=== PATIENT | male | born 1960 | race American Indian/Alaskan Native ===

== ENCOUNTER 2017-04-28 08:04 | Emergency (ER) | payer MEDICARE ==
[2017-04-28 08:59] VITALS: BP 123/77
[2017-04-28] MEDS ORDERED: CLEOCIN IM ONE (10:26)
--- NOTE | 2017-04-28 10:30 | Emergency Department Report ---
HPI - General Chief Complaint: Extremity Injury, Upper Time Seen by Provider: 04/28/17 10:04 - HPI HPI: Patient is a 56-year-old male who presents with her injured left finger pinky finger. Patient states about 2-3 years ago he sustained a burn to his left pinky finger. Patient states finger healed appropriately. Patient states about 10 days ago he was helping his friend move when the furniture. His RAD injured pinky finger and caused a skin to fall off. Patient states he has no sensation in the finger because he had a tendon injury about 10 years ago on that arm ED Past Medical Hx - Past Medical History Previous Medical History?: No Hx Psychiatric Treatment: Yes (bipolar) - Surgical History Past Surgical History?: No - Medications Home Medications: Home Medications Medication Instructions Recorded Confirmed Last Taken Type Cephalexin [Keflex] 500 mg PO Q12HR #10 cap 04/28/17 Unknown Rx Neomycin/Bacitracin/Polymyxinb 1 applic TP TID #1 tube 04/28/17 Unknown Rx [Triple Antibiotic Ointment] ED Review of Systems ROS: Stated complaint: LEFT HAND FINGER INJURY Other details as noted in HPI Constitutional: denies: chills, fever Eyes: denies: eye pain, eye discharge, vision change ENT: denies: ear pain, throat pain Respiratory: denies: cough, shortness of breath, wheezing Cardiovascular: denies: chest pain, palpitations Endocrine: no symptoms reported Gastrointestinal: denies: abdominal pain, nausea, diarrhea Genitourinary: denies: urgency, dysuria, frequency, hematuria Musculoskeletal: denies: back pain, joint swelling, arthralgia Skin: denies: rash, lesions Neurological: denies: headache, weakness, paresthesias Psychiatric: denies: anxiety, depression Hematological/Lymphatic: denies: easy bleeding, easy bruising Physical Exam - Physical Exam Vital Signs: Vital Signs 04/28/17 08:53 Temperature 97.5 F L Pulse Rate 74 Respiratory 16 Rate Blood Pressure 123/77 O2 Sat by Pulse 98 Oximetry Physical Exam: GENERAL: Alert and oriented x3, no apparent distress, Normal Gait, atraumatic. LUNGS: Symetrical with respiration, No wheezing, no rales or crackles, CTAB. HEART: S1, S2 present, regular rate and rhythm without murmur, no rubs, no gallops. Non tender to palpation EXTREMITIES/MUSCULOSKELETAL: No cyanosis, clubbing, rash, lesions or edema. Full ROM bilaterally. UE/LE Pulses 2+ bilaterally. LE and UE 5+ strength bilaterally, finger nontender to palpation. Patient has no sensation on the left pinky finger. Joint amputated from DIP joint moderately healing wound. Non tender to touch. non edematous, non drainage. NEUROLOGIC: The patient is cooperative with no focal neurologic deficits. Cranial nerves II through XII are grossly intact. Normal speech. Normal sensation in bilateral upper and lower extremities but not on left, No loss of sensation, No facial droop, SKIN: Warm and dry, No lesions, No ulceration or induration present. ED Course Vital Signs 04/28/17 08:53 Temperature 97.5 F L Pulse Rate 74 Respiratory 16 Rate Blood Pressure 123/77 O2 Sat by Pulse 98 Oximetry ED Medical Decision Making - Medical Decision Making 56-year-old male presents with reopened finger injury wound. ED course: Patient received clindamycin ED. Wound looks moderately healing with no wound dehiscence Triple antibiotic was applied to moderately healing wound is sterilely draped. I discussed with the patient to continue triple antibiotic the patient and continue antibiotics. I discussed the patient to follow up with his primary care physician to have the wound looked at several days This is not a new amputation of the finger. Patient's finger amputated several years ago. skin was removed from old injured finger 10 days ago, no bleeding noted I discussed the patient to keep his finger lightly draped daily and apply some antibiotic. I discussed the patient finger would reheal. Critical care attestation.: If time is entered above; I have spent that time in minutes in the direct care of this critically ill patient, excluding procedure time. ED Disposition Clinical Impression: Amputation of finger tip Qualifiers: Encounter type: initial encounter Qualified Code(s): S68.129A - Partial traumatic metacarpophalangeal amputation of unspecified finger, initial encounter Disposition: - TO HOME OR SELFCARE Is pt being admited?: No Does the pt Need Aspirin: No Condition: Stable Instructions: Acute Wound Care (ED) Additional Instructions: Make sure to follow up with the primary care physician as discussed. Take all your medications as you've been prescribed. Apply Neosporin to wound daily If you have any worsening symptoms or develop new symptoms please return to ED immediately. Prescriptions: Cephalexin [Keflex] 500 mg PO Q12HR #10 cap Neomycin/Bacitracin/Polymyxinb [Triple Antibiotic Ointment] 1 applic TP TID #1 tube Referrals: EDIE BECKER MD [Primary Care Provider] - 3-5 Days [facility] [Outside] - 3-5 Days [facility] [Outside] - 3-5 Days Forms: Accompanied Note, Work/School Release Form(ED) Time of Disposition: 10:32
[2017-04-28] MEDS ORDERED: TRIPLE ANTIBIOTIC TP ONE (10:32)
== END 2017-04-28 10:59 | disposition home or self-care (01) ==
LOC: ED 08:04
DX: S68.129A Partial traumatic metacarpophalangeal amputation of unspecified finger, initial encounter (principal); W22.8XXA Striking against or struck by other objects, initial encounter; Y93.89 Activity, other specified; Y92.89 Other specified places as the place of occurrence of the external cause; Y99.8 Other external cause status
CPT/HCPCS: 96372; 99282; A6250

== ENCOUNTER 2017-10-20 08:13 | Emergency (ER) | payer MEDICARE ==
[2017-10-20 08:22] VITALS: BP 125/87
--- NOTE | 2017-10-20 09:52 | Emergency Department Report ---
Upper Extremity - HPI Chief Complaint: Shoulder Injury Stated Complaint: SHOULDER PAIN Time Seen by Provider: 10/20/17 09:41 Upper Extremity: Left Shoulder (left shoulder pain with movement of the left neck) Occurred When: 2 Days Mechanism: Unsure Symptoms: Yes Pain with Movement (pain to left shoulder movement of left neck), No Deformity, No Limited Range of Movement, No Numbness, No Weakness, No Swelling, No Bruising/Ecchymosis, No Laceration or Abrasion Other History: This is a 57-year-old male here report that he is having left shoulder pain with movement of his left neck and denies any injury. He said he woke up with pain. Denies any history of left shoulder pain. Patient said pain is achy and then 9/10 when he first came to the emergency room but he says no that he has sat down in the room he states his pain has resolved. Denies any nausea or vomiting. Denies any chest pain or shortness of breath. Denies any numbness or tingling to neck, upper extremities or facial area. Patient denies any medical problem except he has psychiatric disorder bipolar. He states that he took his sister's ibuprofen 800 mg which did not help. Pain is worse with movement and better at rest . ED Review of Systems ROS: Stated complaint: SHOULDER PAIN Other details as noted in HPI Constitutional: denies: chills, fever Eyes: denies: vision change ENT: denies: ear pain, throat pain, congestion Respiratory: denies: cough, shortness of breath, SOB with exertion, SOB at rest , stridor, wheezing Cardiovascular: denies: chest pain, palpitations, edema, syncope Gastrointestinal: denies: abdominal pain, nausea, vomiting, diarrhea, hematemesis, hematochezia Genitourinary: denies: urgency, dysuria Musculoskeletal: arthralgia. denies: back pain, joint swelling, myalgia Skin: denies: rash, lesions Neurological: denies: headache, weakness, numbness, paresthesias ED Past Medical Hx - Past Medical History Previous Medical History?: Yes Hx Psychiatric Treatment: Yes (bipolar) - Surgical History Past Surgical History?: No - Family History Family history: hypertension - Social History Smoking Status: Current Every Day Smoker Substance Use Type: Alcohol - Medications Home Medications: Home Medications Medication Instructions Recorded Confirmed Last Taken Type Neomycin/Bacitracin/Polymyxinb 1 applic TP TID #1 tube 04/28/17 Unknown Rx [Triple Antibiotic Ointment] cephALEXin [Keflex] 500 mg PO Q12HR #10 cap 04/28/17 Unknown Rx Ibuprofen [Motrin] 800 mg PO Q8HR PRN #15 tablet 10/20/17 Unknown Rx Upper Extremity Exam - Exam General: Vital signs noted. No distress. Alert and acting appropriately. Head and Torso: No HEENT Abnormality, No Neck Tenderness, No Chest/Lungs Abnormality, No Abdominal Tenderness, No Back Tenderness Shoulder Exam: Yes Normal Range of Motion in Shoulder (patient with full range of motion to shoulders), No Shoulder Tenderness, No Clavicle Tenderness, No Shoulder Deformity, No AC Joint Tenderness Arm Exam: No Arm/Humerus Tenderness, No Arm Deformity Elbow: Yes Normal Range of Motion in Elbow, No Elbow Tenderness, No Elbow Deformity Forearm: No Forearm Tenderness, No Forearm Deformity, No Pain with Pronation, No Pain with Supination Wrist: Yes Normal ROM in Wrist, No Wrist Tenderness, No Wrist Deformity, No Snuffbox Tenderness, No Pain with Axial Thumb Compression Hand: Yes Normal ROM in Digit(s), No Hand Tenderness, No Hand Deformity, No Digit Tenderness, No Digit(s) Deformity, No Tendon Dysfunction CMS Exam: Yes Normal Distal Pulses (+2 pulses in all extremities.), Yes Normal Capillary Refill, Yes Normal Distal Sensation (no motor or sensory deficit), No Broken Skin ED Course Vital Signs 10/20/17 08:20 Temperature 97.5 F L Pulse Rate 60 Respiratory 18 Rate Blood Pressure 125/87 O2 Sat by Pulse 98 Oximetry - Reevaluation(s) Reevaluation #1: 10/20/17 10:10 Patient said that he took his sister's Motrin 800 mg prior to coming to the emergency room and he showed me another Motrin that he had in his pocket. He is not having any pain at present. ED Medical Decision Making - Medical Decision Making This is a 57-year-old male who came to the hospital due to left shoulder pain. He Z to be evaluated She was evaluated by myself and physical exam is normal. Patient reports no pain with active or passive range of motion to his shoulders. He has no shoulder joint crepitus, effusion or contusion. Denies any pain with palpation. No neurovascular compromise and +2 radial and ulnar pulses. Patient with good color, sensation, movement and temperature to extremities. Patient vital signs stable is afebrile and his pain is better than when he first presented to the emergency room because he said he took a Motrin from his sister. Patient discharged home to follow up with orthopedic doctor in 2-3 days Critical care attestation.: If time is entered above; I have spent that time in minutes in the direct care of this critically ill patient, excluding procedure time. ED Disposition Clinical Impression: Left shoulder pain Qualifiers: Chronicity: acute Qualified Code(s): M25.512 - Pain in left shoulder Disposition: DC-01 TO HOME OR SELFCARE Is pt being admited?: No Does the pt Need Aspirin: No Condition: Stable Instructions: Arthralgia (ED) Additional Instructions: Please state Motrin as prescribed See discharge instruction in [facility] therapy Follow-up with orthopedic doctor in 2-3 days If your condition worsens, return to the emergency room Referrals: PRIMARY CARE, [Primary Care Provider] - 2-[address] [facility] [Outside] - 2-3 Days Forms: Work/School Release Form(ED)
== END 2017-10-20 10:30 | disposition home or self-care (01) ==
LOC: ED 08:13
DX: M25.512 Pain in left shoulder (principal); F17.200 Nicotine dependence, unspecified, uncomplicated; F31.9 Bipolar disorder, unspecified
CPT/HCPCS: 99281; 99282